=== PATIENT | male | born 1990 | race Hispanic/Latino ===

== ENCOUNTER 2018-09-17 11:09 | Emergency (ER) | payer BC, OTHER ==
[2018-09-17 11:09] VITALS: BMI 25.4
[2018-09-17 11:13] VITALS: BP 148/90; PULSE 70; RESP 20; TEMP 97.8; O2SAT 98
--- NOTE | 2018-09-17 11:24 | C.PDOC ---
History Of Present Illness 27 y/o male presents to the ED complaining of bilateral ear pain for the past 3 days, associated with tinnitus. Patient reports the week before he had an upper respiratory infection with nasal congestion. Denies fever. Denies trauma. Otherwise patient denies any dizziness, vertigo, or hearing loss. Time Seen by Provider: 09/17/18 11:15 Chief Complaint (Nursing): ENT Problem History Per: Patient History/Exam Limitations: None Onset/Duration Of Symptoms: Days (x 3) Current Symptoms Are (Timing): Still Present Symptoms Have Been: Continuous Past Medical History Reviewed: Historical Data, Nursing Documentation, Vital Signs Vital Signs: Last Vital Signs Temp 97.8 F 09/17/18 11:13 Pulse 70 09/17/18 11:13 Resp 20 09/17/18 11:13 BP 148/90 09/17/18 11:13 Pulse Ox 98 09/17/18 11:13 - Medical History PMH: HTN (NO LONGER ON MEDS.), Hypercholesterolemia (NO LONGER ON MEDS.) Denies: Chronic Kidney Disease Comment Only: Sleep Apnea (being evaluated) - [facility] Procedures EXCISION OF STOMACH, PERCUTANEOUS ENDOSCOPIC APPROACH, VERT (11/03/15) INSPECTION OF UPPER INTESTINAL TRACT, ENDO (11/03/15) TETANUS TOXOID ADMINIST (10/28/14) Family History: States: No Known Family Hx - Social History Hx Tobacco Use: No Hx Alcohol Use: No Hx Substance Use: No - Immunization History Hx Tetanus Toxoid Vaccination: Yes Hx Influenza Vaccination: Yes Hx Pneumococcal Vaccination: Yes Review Of Systems Constitutional: Negative for: Fever, Chills ENT: Positive for: Ear Pain (and tinnitus). Negative for: Ear Discharge Cardiovascular: Negative for: Chest Pain Respiratory: Negative for: Cough, Shortness of Breath Neurological: Negative for: Headache, Dizziness Physical Exam - Physical Exam Appears: Well, Non-toxic, No Acute Distress Skin: Normal Color, Warm, No Rash Head: Atraumatic, Normacephalic Eye(s): bilateral: Normal Inspection, PERRL, EOMI Ear(s): Bilateral: TM Erythema, Other (Edematous external canal bilaterally; TMs intact; No cerumen impaction; No mastoid tenderness) Nose: Normal Oral Mucosa: Moist Throat: No Erythema, No Exudate Neck: Normal ROM, Supple Chest: Symmetrical Cardiovascular: Rhythm Regular, No Friction Rub, No Murmur Respiratory: No Accessory Muscle Use, Other (Normal respiratory effort) Extremity: Normal ROM, No Swelling Neurological/Psych: Oriented x3, Normal Speech, Normal Cranial Nerves Gait: Steady ED Course And Treatment O2 Sat by Pulse Oximetry: 98 (RA) Pulse Ox Interpretation: Normal Medical Decision Making Medical Decision Making: Impression: Otitis Externa Patient is medically stable. Vitals are WNLs Will discharge patient home with Augmentin and Cortisporin ear drops. Disposition - Disposition Referrals: Ang Diop MD [Staff Provider] - Panda Montemayor MD [Staff Provider] - Disposition: HOME/ ROUTINE Disposition Time: 11:21 Condition: GOOD Additional Instructions: Follow up with the ENT doctor within 1-2 days. Return if worsened. Prescriptions: Amoxicillin/Clavulanate [Augmentin 875 MG-125 MG] 1 tab PO BID #14 tab Neomycin/Polymyxin/Hydrocortis [Cortisporin Otic Susp] 3 drop TOP TID #1 bottle Instructions: Outer Ear Infection (DC) Forms: [employer] (Kyrgyz) - Clinical Impression Clinical Impression: Otitis externa - PA / CHOCOLATIER / Resident Statement MD/DO has reviewed & agrees with the documentation as recorded. - Scribe Statement The provider has reviewed the documentation as recorded by the Scribkeesha Coffey All medical record entries made by the Franciscaibkeesha were at my direction and personally dictated by me. I have reviewed the chart and agree that the record accurately reflects my personal performance of the history, physical exam, medical decision making, and the department course for this patient. I have also personally directed, reviewed, and agree with the discharge instructions and disposition.
== END 2018-09-17 11:33 | disposition home or self-care (01) ==
LOC: C.ER 11:09
DX: H60.90 Unspecified otitis externa, unspecified ear (principal)